=== PATIENT | female | born 1975 | race Caucasian/White ===

== ENCOUNTER → 2017-04-27 | Outpatient (CLI) | payer BC ==
[2017-04-29 10:54] LABS: MUMPS IGG AB 23.3 AU/mL (Immune >10.9)
[2017-04-29 17:37] LABS: DIPHTHERIA ANTITOXOID AB 0.29 IU/mL (<0.10); TETANUS ANTITOXOID IGG AB 1.68 IU/mL (<0.10)
== END ==
LOC: LAB 14:43
PROVIDERS: ATTEND Family Medicine
DX: Z02.89 Encounter for other administrative examinations (principal)
CPT/HCPCS: 36415; 86648; 86706; 86735; 86762; 86765; 86774; 86787